=== PATIENT | male | born 1990 | race Caucasian/White ===

== ENCOUNTER → 2018-08-18 | Outpatient (CLI) | payer OTHER ==
--- NOTE | 2018-08-18 16:47 | REP ---
Clinical: Trauma. Technique: AP, mixon, Usama, and bilateral lateral views of the skull. Findings: Calvarium and facial bones appear intact and without obvious acute injury. Sinuses and mastoid air cells are well-aerated and clear. No fluid levels are identified. No foreign body noted. Nasal bones intact. Visualized cervical spine intact. Impression: No acute fracture. Electronically Signed by Luigi Schmitt MD 08/18/2018 04:38 P
== END ==
LOC: M LRY 16:00
PROVIDERS: ATTEND Physician Assistant
DX: S09.90XA Unspecified injury of head, initial encounter (principal); X58.XXXA Exposure to other specified factors, initial encounter; Y92.9 Unspecified place or not applicable; Y93.9 Activity, unspecified; Y99.9 Unspecified external cause status

== ENCOUNTER → 2023-01-04 | Outpatient (CLI) | payer OTHER | LOC: M SLEEP HO 11:26 | PROVIDERS: ATTEND Internal Medicine Cardiovascular Disease | DX: R06.83 Snoring (principal) ==